=== PATIENT | male | born 1985 | race Caucasian/White ===

== ENCOUNTER 2017-03-06 21:06 | Emergency (ER) | payer OTHER ==
[~2017-03-06] VITALS: Ht 185.4 cm; Wt 89.4 kg
[2017-03-06 21:09] VITALS: BP 145/90
[2017-03-06] MEDS ORDERED: LIDOCAINE 1%, 20ML ONE (21:26)
[2017-03-06] MEDS ORDERED: DIPH,PERTUSS(ACELL),TET VAC/PF 0.5 ML IM-VACC ONE ×2 (21:30→21:50)
[2017-03-06] MEDS ORDERED: LIDOCAINE 1%, 10ML INFIL ONE (21:30)
== END 2017-03-06 22:05 | disposition home or self-care (01) ==
LOC: ED 22:00
DX: S61.011A Laceration without foreign body of right thumb without damage to nail, initial encounter (principal); X58.XXXA Exposure to other specified factors, initial encounter; Y93.89 Activity, other specified; Y99.8 Other external cause status; Y92.009 Unspecified place in unspecified non-institutional (private) residence as the place of occurrence of the external cause
CPT/HCPCS: 12001; 90471; 90715